=== PATIENT | male | born 1955 | race Caucasian/White ===

== ENCOUNTER → 2024-03-09 | Outpatient (CLI) | payer MEDICARE, BC, SELFPAY ==
[2024-03-09 13:33] LABS: Basophils # (Auto) 0.1 Thou/mm3 (0.0-0.2); Basophils % (Auto) 1 % (0-2.5); Eosinophils # (Auto) 0.2 Thou/mm3 (0.0-0.5); Eosinophils % (Auto) 3 % (0-10); Hematocrit 48.1 % (41.0-53.0); Hemoglobin 16.4 g/dL (13.5-16.0); Immature Granulocytes % (Auto) 1 % (0-0); Immature Granulocytes Auto 0.09 Thou/mm3 (0.00-0.00); Lymphocytes # (Auto) 1.5 Thou/mm3 (1.0-4.8); Lymphocytes % (Auto) 21 % (10-50); Mean Corpuscular HGB Conc 34.1 g/dl (31.0-37.0); Mean Corpuscular Hemoglobin 29.5 pg (25.0-35.0); Mean Corpuscular Volume 87 fL (80-100); Monocytes # (Auto) 0.7 Thou/mm3 (0.0-0.8); Monocytes % (Auto) 10 % (0-12); Neutrophils # (Auto) 4.4 Thou/mm3 (1.8-7.7); Neutrophils % (Auto) 64 % (37-80); Nucleated Red Blood Cell % 0 /100 WBC (0); Platelet Count 205 Thou/mm3 (140-440); Red Blood Count 5.55 Miln/mm3 (4.50-5.90); White Blood Count 6.9 Thou/mm3 (3.8-10.6)
[2024-03-09 13:40] LABS: Prostate Specific Antigen 0.65 ng/mL (0-4.00)
[2024-03-09 13:44] LABS: Vitamin D 25 Hydroxy Total 26.6 ng/mL (7.3-40.2)
[2024-03-09 13:45] LABS: Alanine Aminotransferase 21 U/L (10-49); Albumin, Serum 4.6 gm/dL (3.4-4.8); Alkaline Phosphatase 56 U/L (46-116); Anion Gap 4 (7-16); Aspartate Amino Transferase 17 U/L (0-34); BUN/Creatinine Ratio 13 Ratio (12-20); Bilirubin,Total 0.4 mg/dL (0.3-1.2); Blood Urea Nitrogen 14 mg/dL (9-23); Calcium 9.8 mg/dL (8.3-10.6); Calcium (Corrected) 9.8 mg/dL (8.5-10.1); Carbon Dioxide 27.7 mMol/L (20.0-31.0); Cardiac Risk Estimate 3.1 RATIO (4.0-6.7); Chloride 105 mMol/L (98-107); Cholesterol 129 mg/dL (132-200); Creatinine (Component) 1.1 mg/dL (0.6-1.3); Free T4 (Free Thyroxine) 0.91 ng/dL (0.89-1.76); Globulin 2.3 gm/dL (2.3-3.5); Glucose 93 mg/dL (74-106); HDL Cholesterol 41 mg/dL (40-60); LDL Cholesterol,Calculated 69 mg/dL (0-130); Osmolality,Calculated 274 (275-295); Sodium 137 mMol/L (136-145); Thyroid Stimulating Hormone 17.85 uIU/mL (0.55-4.78); Total Protein 6.9 gm/dL (5.7-8.2); Triglycerides 95 mg/dL (30-150); eGFR > 60 See Note
== END | disposition home or self-care (01) ==
PROVIDERS: PCP Internal Medicine Hospice and Palliative Medicine; Referring Provider Nurse Practitioner Family; Visit Provider Nurse Practitioner Family
DX: E78.5 Hyperlipidemia, unspecified (principal); E03.9 Hypothyroidism, unspecified; I10 Essential (primary) hypertension; E66.9 Obesity, unspecified; E55.9 Vitamin D deficiency, unspecified; N40.0 Benign prostatic hyperplasia without lower urinary tract symptoms; Z12.5 Encounter for screening for malignant neoplasm of prostate
CPT/HCPCS: 36415; 80053; 80061; 82306; 84153; 84439; 84443; 85025

== ENCOUNTER → 2024-05-04 | Outpatient (CLI) | payer MEDICARE, BC, SELFPAY ==
[2024-05-04 15:58] LABS: Free T4 (Free Thyroxine) 1.35 ng/dL (0.89-1.76); Thyroid Stimulating Hormone 1.12 uIU/mL (0.55-4.78)
== END | disposition home or self-care (01) ==
LOC: COPL 14:24
PROVIDERS: PCP Internal Medicine Hospice and Palliative Medicine; Referring Provider Nurse Practitioner Family; Visit Provider Nurse Practitioner Family
DX: E03.9 Hypothyroidism, unspecified (principal)
CPT/HCPCS: 36415; 84439; 84443

== ENCOUNTER 2024-05-08 15:18 | Outpatient (AMB) | payer MEDICARE, BC, SELFPAY ==
--- NOTE | 2024-05-08 15:31 | ORTHONT_ITS ---
Vital signs 05/08/24 15:32 Height 1.78 m Height Method Stated Weight 101.236 kg Weight Measurement Method Standing Scale BMI 31.9 BP 122/84 Blood Pressure Source Automatic Cuff Blood Pressure Location Left Upper Arm Position Sitting Respiration 18 Pulse 89 Pulse Source Monitor Temp 98.1 F Temp Source Temporal Artery Scan Pulse Oximetry (%) 95 Oxygen Delivery Method Room Air Med/Allergies Allergies & Medications Allergies No Known Allergies Allergy (Verified 05/08/24 15:35) Medication Reconciliation amlodipine 5 mg tablet 5 mg PO QDAY 12/25/22 [History Confirmed 05/08/24] atorvastatin 20 mg tablet 20 mg PO QDAY 12/25/22 [History Confirmed 05/08/24] benazepril 20 mg-hydrochlorothiazide 12.5 mg tablet 2 tab PO QDAY 12/25/22 [History Confirmed 05/08/24] cyclobenzaprine 5 mg tablet 5 mg PO HS 12/25/22 [History Confirmed 05/08/24] levothyroxine 137 mcg tablet 137 mcg PO QDAY 12/25/22 [History Confirmed 05/08/24] tamsulosin 0.4 mg capsule (Flomax) 0.4 mg PO QDAY 12/25/22 [History Confirmed 05/08/24] acetaminophen 325 mg tablet 650 mg (2 x 325 mg) PO QID #90 tabs 12/26/22 [Rx Confirmed 05/08/24] aspirin 81 mg tablet,delayed release 81 mg PO BID #60 tabs 12/26/22 [Rx Confirmed 05/08/24] doxycycline hyclate 100 mg tablet 100 mg PO BID #14 tabs 12/26/22 [Rx Confirmed 05/08/24] pregabalin 75 mg capsule 75 mg PO BID #45 caps 12/26/22 [Rx Confirmed 05/08/24] sennosides 8.6 mg-docusate sodium 50 mg tablet (Senna-S) 1 tab-cap PO QDAY #30 tabs 12/26/22 [Rx Confirmed 05/08/24] oxycodone 5 mg tablet 5 mg PO Q6H PRN pain #28 tabs 01/25/23 [Rx Confirmed 05/08/24] Exam Exam Patient is in no acute distress and is cooperative with the examination today. Patient has a normal mood and affect. Breathing is nonlabored. In no respiratory distress. Bilateral extremities were evaluated and demonstrates sensation intact to light touch. Palpable pedal pulses are present. No significant edema is present. Right knee incision is clean dry intact. The blisters have healed over completely. Range of motion is 10 degrees to 100 Right hip range of motion demonstrates 0 degrees of internal rotation and 5 degrees of external rotation. X-rays were reviewedAnd demonstrates a cementless left total knee replacement in good alignment position Assessment and Plan Problem List (1) Acute pain of right hip: Status: Acute Plan: Patient is a pleasant 68-year-old male with a prior total knee replacement. He reports a lot of pain actually in his groin and his thigh. He will get x-rays of his hip as this is likely cause given his exam. He has pain with logroll and pain with internal rotation. We will see him back once his x-ray results are done. Will order hip and knee x-rays. (2) History of total right knee replacement: Status: Acute Advanced Care Planning Discussion Advance care planning discussed with:: patient Office Procedures GNS Level of Care Nursing/Assessment Patient Status: Established Patient Nursing Assessment/Reassesment: Medication Reconciliation, Update PMH in EMR and Vital Signs Coordination of Care: Complex Care and Chronic Disease 1-5, Education Complex Pt/Fam, Consent,records obtained, informed consent, Results/Orders obtained and Staff clarify orders Established Patient Charge Established Patient Point Assignment: 95 Established Patient Point Charge: EP Level 3 (80-115) MA Intake Visit Data Collection New Patient or Established: Established Patient (seen at [facility] within 3 years) Reason for Visit:: FOLLOW UP Seen by Clinical Staff ONLY (RN/MA): 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 PCP or OBGYN visit in last 3 months: Yes Hx Now: No Do You Feel Safe at Home: Yes Authorities Contacted: N/A Questionairres Past Medical History Past Medical History Have you ever been diagnosed with any of the following: Neurological Problems Seizures: No Cardiology Problems Congestive Heart Failure: No Hypertension: Yes Respiratory Problems Chronic Obstructive Pulmonary Disease (COPD): No Sleep Apnea: Yes (c pap) Smoking: No Smoking Cessation Counseling: No Smoking Exposure: No Stomache/Intestinal Problems Obesity: Yes Genital/Urinary Problems Renal Disease: No Musculoskeletal Problems Arthritis: Yes Endocrine Problems Diabetes Mellitus Type 1: No Diabetes Mellitus Type 2: No Hypothyroidism: Yes Other Problems Hospitalization: Yes (surgery) Shingles: No Blood Transfusions: No Blood Transfusion Reaction: No Anesthesia Reactions: No MRSA: No Chicken Pox: Yes Cancer: Yes (Thyroid) Surgical History Thyroidectomy: Yes Subjective Visit Visit for: follow up visit Immunization / Flu Flu Vaccine in the Last 12 Months: No Flu Vaccine Exclusion Criteria: No Exclusion Criteria History of Present Illness Chief complaint: Right hip pain only Tao is a pleasant 68-year-old male who is a year and a half out from a rightKnee replacement. He reports he is a lot of pain in his thigh and his groin. I wonder if this could be from his hip. He continues to ride [employer]'s and motorcycles and is very active Treatments Improvement with previous injections: No Improvement with PT: No Improvement with NSAIDS: no Review of Systems Review of Systems: All systems negative unless otherwise noted in HPI.
[2024-05-08 15:32] VITALS: BP 122/84; PULSE 89; RESP 18; TEMP 36.7; O2SAT 95; BMI 31.9
--- NOTE | 2024-05-08 15:45 | XR_ITS ---
Examination: Right knee 4 views Technique: AP oblique lateral axial right knee 4 views Exam date and time: Every 22,025 1559 hrs. Indications: Status post right knee replacement December 2022 with persistent pain Findings: Mild osteopenia Total right knee arthroplasty. Satisfactory alignment No loosening of the prosthetic components No patellar dislocation No fracture Impression: Total right knee arthroplasty with satisfactory alignment
--- NOTE | 2024-05-08 15:45 | XR_ITS ---
Examination:Right hip AP, lateral, AP pelvis 3 views Technique: Hip AP lateral, AP pelvis, 3 views Exam date and time:April 30, 2024 1552 hrs. Indications: Right hip pain beginning December 2022 Findings: Advanced right hip osteoarthritis Moderate sclerosis involving the femoral head with radiolucencies Moderate narrowing left hip joint Prominent osteopenia Impression: Advanced right hip osteoarthritis Suspicious for avascular necrosis right femoral head, as clinically warranted, consider MRI right hip follow-up.
== END 2024-05-08 15:49 | disposition home or self-care (01) ==
LOC: HODSRG 15:18
PROVIDERS: PCP Internal Medicine Hospice and Palliative Medicine; Referring Provider Internal Medicine Hospice and Palliative Medicine; Supervising Provider Orthopaedic Surgery Adult Reconstructive Orthopaedic Surgery; Visit Provider Orthopaedic Surgery Adult Reconstructive Orthopaedic Surgery
DX: M25.551 Pain in right hip (principal); Z96.651 Presence of right artificial knee joint
CPT/HCPCS: 73502; 73564; 99213; G0463

== ENCOUNTER 2024-05-26 13:34 | Outpatient (AMB) | payer MEDICARE, BC, SELFPAY ==
[2024-05-26 13:50] VITALS: BP 145/90; PULSE 70; RESP 18; TEMP 36.8; O2SAT 94; BMI 32.8
--- NOTE | 2024-05-26 13:50 | ORTHONT_ITS ---
Vital signs 05/26/24 13:50 Height 1.78 m Height Method Stated Weight 103.986 kg Weight Measurement Method Standing Scale BMI 32.8 BP 145/90 H Blood Pressure Source Automatic Cuff Blood Pressure Location Right Upper Arm Position Sitting Respiration 18 Pulse 70 Pulse Source Monitor Temp 98.2 F Temp Source Temporal Artery Scan Pulse Oximetry (%) 94 L Oxygen Delivery Method Room Air Med/Allergies Allergies & Medications Allergies No Known Allergies Allergy (Verified 05/26/24 13:51) Medication Reconciliation amlodipine 5 mg tablet 5 mg PO QDAY 12/25/22 [History Confirmed 05/26/24] atorvastatin 20 mg tablet 20 mg PO QDAY 12/25/22 [History Confirmed 05/26/24] benazepril 20 mg-hydrochlorothiazide 12.5 mg tablet 2 tab PO QDAY 12/25/22 [History Confirmed 05/26/24] cyclobenzaprine 5 mg tablet 5 mg PO HS 12/25/22 [History Confirmed 05/26/24] levothyroxine 137 mcg tablet 137 mcg PO QDAY 12/25/22 [History Confirmed 05/26/24] tamsulosin 0.4 mg capsule (Flomax) 0.4 mg PO QDAY 12/25/22 [History Confirmed 05/26/24] acetaminophen 325 mg tablet 650 mg (2 x 325 mg) PO QID #90 tabs 12/26/22 [Rx Confirmed 05/26/24] aspirin 81 mg tablet,delayed release 81 mg PO BID #60 tabs 12/26/22 [Rx Confi rmed 05/26/24] doxycycline hyclate 100 mg tablet 100 mg PO BID #14 tabs 12/26/22 [Rx Confirmed 05/26/24] pregabalin 75 mg capsule 75 mg PO BID #45 caps 12/26/22 [Rx Confirmed 05/26/24] sennosides 8.6 mg-docusate sodium 50 mg tablet (Senna-S) 1 tab-cap PO QDAY #30 tabs 12/26/22 [Rx Confirmed 05/26/24] oxycodone 5 mg tablet 5 mg PO Q6H PRN pain #28 tabs 01/25/23 [Rx Confirmed 05/26/24] Exam Exam Patient is in no acute distress and is cooperative with the examination today. Patient has a normal mood and affect. Breathing is nonlabored. In no respiratory distress. Bilateral extremities were evaluated and demonstrates sensation intact to light touch. Palpable pedal pulses are present. No significant edema is present. Right knee incision is clean dry intact. The blisters have healed over completely. Range of motion is 10 degrees to 100 Right hip range of motion demonstrates 0 degrees of internal rotation and 5 degrees of external rotation. X-rays were reviewedAnd demonstrates a cementless left total knee replacement in good alignment position Right hip x-rays demonstrate severe arthritis with complete obliteration of the hip joint space Assessment and Plan Problem List (1) Acute pain of right hip: Status: Acute Plan: Patient is a pleasant 68-year-old male with a prior total knee replacement With right hip pain. He reports a lot of pain actually in his groin and his thigh. He has severe arthritis of his right hip and the pain is affecting his quality life and happiness. We discussed that a total hip replacement is a reasonable option. We discussed doing it between an anterior anterolateral approach and I think our goal laterally is quite a bit of a belly with hang up. The nature and purpose of the total hip replacement, alternative method(s) of treatment, the material risks involved, and the possibility of complications were fully explained to the patient. The patient does NOT have any of the following contraindications to KENISHA: - Active infection of the hip joint, OR - Active systemic bacteremia, OR - Active skin infection or open wound at surgical site, OR - Neuropathic arthritis, OR - Severe, rapidly progressive neurological disease, OR - Severe medical condition that makes risks of the surgery outweigh the potential benefit The patient was told the most common risks and complications associated with a total hip replacement include, but are not limited to: blood clots in the leg, fatal pulmonary embolism, dislocation of the prosthesis, intraoperative and postoperative fractures of the femur or acetabulum, infection, failure of the prosthesis or grafting materials, complications from anesthesia, reactions to blood transfusions, postoperative leg length inequality, instability of the hip replacement, nerve damage or injury, vascular injury, delayed wound healing, infection, other injury or even . In addition, there are risks associated with anesthesia given during this operation. Also, the patient was told that after undergoing a total hip replacement there may still be persistent pain or disability. The patient was informed that the success of this operation in part depends upon the mechanical devices which are going to be implanted and that these devices can fail or malfunction, and may need to be repaired or replaced and there are no guarantees as to the longevity of this device or its parts and that it or its parts could fail prematurely. The patient was also notified that during the course of surgery, there may be a need to use bone graft from donors, and that any bone graft used will be carefully screened for communicable diseases, including AIDS, hepatitis, Cesar-Creutzfeldt, or other diseases, but despite the screening procedures, there is a small chance that they could contract one of these diseases. Finally, the patient was asked to follow completely and fully with all advice and recommended treatments, and that recovery and ultimate outcome are affected by their compliance with recommended treatment. We discussed the risks, benefits and treatment alternatives, and the patient is interested in proceeding with surgery. We will try to set this up as expeditiously as possible. (2) History of total right knee replacement: Status: Acute Advanced Care Planning Discussion Advance care planning discussed with:: patient Office Procedures GNS Level of Care Nursing/Assessment Patient Status: Established Patient Nursing Assessment/Reassesment: Medication Reconciliation, Update PMH in EMR and Vital Signs Coordination of Care: Complex Care and Chronic Disease 1-5, Education Complex Pt/Fam, Consent,records obtained, informed consent, Results/Orders obtained and Staff clarify orders Established Patient Charge Established Patient Point Assignment: 95 Established Patient Point Charge: EP Level 3 (80-115) MA Intake Visit Data Collection New Patient or Established: Established Patient (seen at [facility] within 3 years) Reason for Visit:: XRAYS RESULTS Seen by Clinical Staff ONLY (RN/MA): No Verbal consent obtained for Telemed visit?: No 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 PCP or OBGYN visit in last 3 months: Yes Hx Now: No Do You Feel Safe at Home: Yes Authorities Contacted: N/A Questionairres Past Medical History Past Medical History Have you ever been diagnosed with any of the following: Neurological Problems Seizures: No Cardiology Problems Congestive Heart Failure: No Hypertension: Yes Respiratory Problems Chronic Obstructive Pulmonary Disease (COPD): No Sleep Apnea: Yes (c pap) Smoking: No Smoking Cessation Counseling: No Smoking Exposure: No Stomache/Intestinal Problems Obesity: Yes Genital/Urinary Problems Renal Disease: No Musculoskeletal Problems Arthritis: Yes Endocrine Problems Diabetes Mellitus Type 1: No Diabetes Mellitus Type 2: No Hypothyroidism: Yes Other Problems Hospitalization: Yes (surgery) Shingles: No Blood Transfusions: No Blood Transfusion Reaction: No Anesthesia Reactions: No MRSA: No Chicken Pox: Yes Cancer: Yes (Thyroid) Surgical History Thyroidectomy: Yes Subjective Visit Visit for: follow up visit and x-rays Immunization / Flu Flu Vaccine in the Last 12 Months: Yes Flu Vaccine Exclusion Criteria: Already Received History of Present Illness Chief complaint: F/U XRAYS Tao is a pleasant 68-year-old male who is a year and a half out from a right Knee replacement. He reports he is a lot of pain in his thigh and his groin. He is here for x-ray follow-up of his right hip as he felt a lot of groin pain. We obtained new x-rays and he has end-stage arthritis of his right hip. The pain is affecting his quality life and happiness. He has difficulty putting on shoes and has difficulty getting on his [employer]apha because of his hip pain Pain Pain level (0-10): 2 Pain duration: ALL DAY Pain location: outside (lateral) Pain quality: aching Pain timing: increases with activity Associated signs & symptoms: none Ambulatory data Ambulatory device: none Treatments Improvement with previous injections: No Improvement with PT: No Improvement with NSAIDS: no Review of Systems Review of Systems: All systems negative unless otherwise noted in HPI.
== END 2024-05-26 14:19 | disposition home or self-care (01) ==
LOC: HODSRG 13:34
PROVIDERS: PCP Internal Medicine Hospice and Palliative Medicine; Referring Provider Internal Medicine Hospice and Palliative Medicine; Supervising Provider Orthopaedic Surgery Adult Reconstructive Orthopaedic Surgery; Visit Provider Orthopaedic Surgery Adult Reconstructive Orthopaedic Surgery
DX: M16.11 Unilateral primary osteoarthritis, right hip (principal); Z96.651 Presence of right artificial knee joint; I10 Essential (primary) hypertension; G47.30 Sleep apnea, unspecified
CPT/HCPCS: 99213; G0463

== ENCOUNTER → 2024-06-18 | Outpatient (CLI) | payer MEDICARE, BC, SELFPAY ==
--- NOTE | 2024-06-18 14:06 | XR_ITS ---
Examination: CT bilateral lower extremities, without contrast. 2-D sagittal reconstructions. 2-D coronal reconstructions. 3-D reconstructions. Date and time of exam:June 18, 2024 1429 hrs. Indications: Diagnosis unilateral osteoarthritis right hip, right hip pain beginning 2020 CTDI: vol (mGy):11.6 DLP: (mGycm):827 Technique: Multiple 1.25 mm axial sections of the bilateral lower extremities without intravenous contrast have been obtained. 2-D sagittal and coronal reconstructions have been obtained. 3-D reconstructions have been obtained. Low dose protocols were performed. One or more of the following dose reduction techniques were used; automated exposure control, adjustment of the mA and/or KV according to patient size, use of iterative reconstruction technique. Findings: Severe osteopenia Advanced right hip osteoarthritis, [id number] joint space narrowing and subarticular cyst formation No fracture Moderate to advanced narrowing left hip joint Total right knee arthroplasty with satisfactory alignment Mild osteoarthritis medial lateral joint space left knee moderate narrowing lateral left patellofemoral joint Impression: Advanced right hip osteoarthritis
== END | disposition home or self-care (01) ==
LOC: CCTX 13:43
PROVIDERS: PCP Internal Medicine Hospice and Palliative Medicine; Referring Provider Orthopaedic Surgery Adult Reconstructive Orthopaedic Surgery; Visit Provider Orthopaedic Surgery Adult Reconstructive Orthopaedic Surgery
DX: M16.11 Unilateral primary osteoarthritis, right hip (principal)
CPT/HCPCS: 72192; 73700

== ENCOUNTER 2024-07-01 05:30 | Day surgery (SDC) | payer MEDICARE, BC, SELFPAY ==
[2024-06-29 09:41] VITALS: BMI 33.9
[2024-06-29 11:23] LABS: Basophils # (Auto) 0.1 Thou/mm3 (0.0-0.2); Basophils % (Auto) 1 % (0-2.5); Eosinophils # (Auto) 0.2 Thou/mm3 (0.0-0.5); Eosinophils % (Auto) 3 % (0-10); Hematocrit 47.8 % (41.0-53.0); Hemoglobin 16.7 g/dL (13.5-16.0); Immature Granulocytes % (Auto) 1 % (0-0); Immature Granulocytes Auto 0.06 Thou/mm3 (0.00-0.00); Lymphocytes # (Auto) 1.4 Thou/mm3 (1.0-4.8); Lymphocytes % (Auto) 20 % (10-50); Mean Corpuscular HGB Conc 34.9 g/dl (31.0-37.0); Mean Corpuscular Hemoglobin 29.6 pg (25.0-35.0); Mean Corpuscular Volume 85 fL (80-100); Monocytes # (Auto) 0.8 Thou/mm3 (0.0-0.8); Monocytes % (Auto) 11 % (0-12); Neutrophils # (Auto) 4.5 Thou/mm3 (1.8-7.7); Neutrophils % (Auto) 65 % (37-80); Nucleated Red Blood Cell % 0 /100 WBC (0); Platelet Count 204 Thou/mm3 (140-440); RDW Standard Deviation 39.8 fL (35.1-43.9); Red Blood Count 5.65 Miln/mm3 (4.50-5.90)
[2024-06-29 12:03] LABS: Partial Thromboplastin Time 25.4 Seconds (22.0-36.0)
[2024-06-29 12:15] LABS: Alanine Aminotransferase 25 U/L (10-49); Albumin, Serum 4.6 gm/dL (3.4-4.8); Albumin/Globulin Ratio 1.8 (1.2-2.2); Alkaline Phosphatase 67 U/L (46-116); Anion Gap 5 (7-16); Aspartate Amino Transferase 20 U/L (0-34); BUN/Creatinine Ratio 11 Ratio (12-20); Bilirubin,Total 0.6 mg/dL (0.3-1.2); Blood Urea Nitrogen 14 mg/dL (9-23); Carbon Dioxide 27.3 mMol/L (20.0-31.0); Chloride 103 mMol/L (98-107); Creatinine (Component) 1.3 mg/dL (0.6-1.3); Estimated Creatinine Clearance 61.8 mL/min (>60); Globulin 2.6 gm/dL (2.3-3.5); Glucose 92 mg/dL (74-106); Osmolality,Calculated 270 (275-295); Potassium 3.9 mMol/L (3.4-5.1); Sodium 135 mMol/L (136-145); Total Protein 7.2 gm/dL (5.7-8.2); eGFR 59 See Note
[2024-06-29 12:27] LABS: Prothrombin Time 10.9 Seconds (9.0-12.2)
--- NOTE | 2024-06-30 08:23 | SUR.PREOP ---
Cardiac history and records reviewed with Dr Herrera.
[2024-07-01] VITALS (18 sets, daily range): BP systolic 88–134; BP diastolic 59–91; PULSE 67–82; RESP 15–22; TEMP 36.3–36.7; O2SAT 95–100; BMI 33.3
[2024-07-01] MEDS: ACETAMINOPHEN 325 MG TABLET 650 MG PO (06:53)
[2024-07-01] MEDS: MELOXICAM 7.5 MG TABLET PO (06:54)
[2024-07-01] MEDS: PREGABALIN 75 MG CAPSULE PO (06:54)
[2024-07-01] MEDS: RINGERS LACTATED 1000 ML 1,000 ML 20 ML IV (06:55)
--- NOTE | 2024-07-01 07:28 | CHAP ---
Visited briefly with patient giving encouragement and prayer.
--- NOTE | 2024-07-01 07:53 | XR_ITS ---
Examination: AP right hip single view Technique one AP portable right hip single view Exam date and time: July 01, 2024 0953 hours INDICATIONS: Status post total right hip arthroplasty FINDINGS: Total right hip arthroplasty. Satisfactory alignment No fracture IMPRESSION: Total right hip arthroplasty with satisfactory alignment
--- NOTE | 2024-07-01 09:57 | SUR.OPER ---
IMPLANT: DANIEL INSIGNIA HIP STEM HIGH OFFSET REF: [id number] LOT: [id number] MARIN 7 NK LNTH 41 MM STM LNTH 109 MM OFFST HIGH EXP 05/20/28
--- NOTE | 2024-07-01 10:28 | PD.SUROPNT ---
Date of Procedure 07/01/24 Pre Op Diagnosis right hip osteoarthritis Post Op Diagnosis right hip osteoarthritis Procedure right total hip replacement Findings full thickness cartilage loss and osteophytes Procedure Description Indications: The patient is a 68 y.o. year-old with a longstanding history of right hip pain. After considering the patient's condition and the impact of their hip injury on the patient's quality of life and risks of nonoperative treatment, total hip replacement was offered as a reasonable option. Prior to the surgery I discussed the nature of the hip replacement surgery including alternatives to surgery and the purpose of, and indications for proceeding with surgery. I discussed that this surgery is a shared decision between the patient and the surgeon. Risks and benefits and alternatives of the procedure have been explained to the patient and their family. Anesthesia complications and risks include but are not limited to stroke, heart attack, and . The surgical risks include but are not limited to infection, instability/dislocation, bleeding, nerve and blood vessel injury, deep vein thrombosis, pulmonary embolus, stiffness, pain, scar, need for reoperation, leg length discrepancy, thigh numbness, weakness, and mechanical failure of the implant including loosening, metal complications, metal allergy, wear or breakage. I discussed the expected recovery from surgery and the importance of compliance with all our pre and post-operative recommendations in order to maximize the recovery. The patient/family understands the risks of loss of life, loss of limb and, loss of function and wishes to proceed. They understand they are at increased risk for infection given their history of smoking. A signed and witnessed consent was obtained and placed in the chart. Patient Positioning: The patient was placed in the lateral decubitus position on a standard table using a pegboard. An axillary role was placed. All extremities were padded to ensure adequate protection. A aquino catheter was aseptically inserted. Time Out: A timeout was performed prior to the procedure which verified the correct patient, positioning, operation to be performed, operative site, antibiotics, allergies, imaging, and any other concerns. All parties were in agreement. Procedure in detail: The operative site was cleaned and draped in the usual sterile fashion. A final timeout was performed with all parties in agreement. We first placed pins for the array above the ASIS. A modified anterolateral approach to the hip was utilized. A 16cm skin incision was made centered over the greater trochanter in line with the femur. This was taken down through skin and subcutaneous tissue using a 10 blade. Bleeding was controlled using electrocautery. The fascia was identified and split in line with the femur. The charnley retractor was then placed. The abductor insertion was identified and a split made in the anterior 1/3 of the tendon proximally. Retractors were placed and the gluteus minimus was visualized. A capsulotomy was made down to the femoral neck anterior to the minimus. A split was then made in the anterior 1/3 of the vastus lateralis. A retractor was then placed anterior to the femoral shaft, the tendon was tagged with #1 ethibond sutures and a U-shaped split was made in the anterior 1/3 of the abductor tendon being careful to leave enough tendon to re-attach. The hip was then gently externally rotated as the anterior tissues were taken down with the tendon and capsule as one sleeve. Once the anterior tissue had been release off of bone a bone hook was placed and the hip was gently dislocated. Retractors were placed around the femoral neck and the femoral neck osteotomy was then made to freshen up the cut. The femoral head removed. The leg was then placed in extension and retractors were placed anterior and posterior to the acetabulum. The inferior capsule was release to improved visualization and the labrum and osteophytes around the acetabulum were removed. The acetabulum was then reamed to bleeding bone with adequate wall coverage and the cup was impacted into place using the robot. 1 Screw was then placed followed by the liner which was impacted and confirmed to be seated. We then turned our attention to the femur. The leg was brought into external rotation and the femur was exposed. A canal finder was used followed by a box osteotomy and the femur was broached sequentially. The trial stem was then left in and the hip was trialed using various neck offsets and head sizes until the appropriate size was found based on leg length, stability. Once we were satisfied with the construct a cross-table AP pelvis radiograph was obtained to confirm appropriate positioning and sizing. The hip was then dislocated and the trials were then removed and the final stem impacted into placed. The hip was then again trialed and the appropriate head size identified. The hilario taper was then cleaned and dried and the final head impact into place and tested. The acetabulum was irrigated and confirmed to be free of debris. The hip was then reduced and taken through range of motion. The hip was stable in abduction and external rotation, adduction and external rotation, flexion past 90 degrees and internal rotation past 20 degrees. It did not sublux throughout range of motion and no impingement was detected. Leg lengths were appropriately restored based on preoperative leg lengths and intraoperative testing. . The hip was then copiously irrigated with dilute betadine followed by normal saline. The hip was then injected with the cocktail per protocol The hip was the closed in layers. The abductor tendon was closed with #1 ethibond. The fascia was closed with 0 Vicryl followed by an 0 V-lock. . The deep layer was closed with 0-Vicryl and the subcutaneous layer by a 2-0 Vicryl. The subdermal layer was closed with a 3-0 monocryl. The skin was then cleaned and dried and steri-strips placed followed by a sterile dressing. The drapes were then taken down and the patient was placed supine. Leg lengths were confirmed to be appropriate and the patient's lower extremities were warm and well perfused with brisk capillary refill and palpable pulses. The patient was then awoken, transferred to the [facility] and taken to the PACU in stable condition. They tolerated the procedure well. The patient's family/caregiviers were made aware of their condition. Postoperative plan Activity: WBAT, no hip precautions , no active hip abduction DVT Prophylaxis: aspirin 81mg BID Antibiotics: Standard postoperative antibiotics x 24 hours Implants: Leah 52 cup, 7 HO insiginia, 1 screw, standard liner, 40 head Anesthesia GETA Drains none Implants leah Pathology / specimen None Pathology comment: none Estimated Blood Loss 150 Condition Stable Disposition same day Surgeon Armand Larson MD Surgical Staff Operation Date: 07/01/24 08:00 Case Staff Anesthesiologist: Ha Pichardo RN First Assistant: Candida Wolfe
--- NOTE | 2024-07-01 10:31 | XR_ITS ---
Examination:Right hip AP, lateral, AP pelvis 3 views Technique: Hip AP lateral, AP pelvis, 3 views Exam date and time:July 01, 2024 1122 hours INDICATIONS: Postoperative replacement FINDINGS: Total right hip arthroplasty. Satisfactory alignment No fracture Moderate to advanced narrowing left hip joint IMPRESSION: Total right hip arthroplasty with satisfactory alignment.
--- NOTE | 2024-07-01 10:42 | SUR.PHASEI ---
1042 Patient arrived to recovery resting comfortably in [facility], on oxygen 10L via oxy mask with an oral airway in place, breathing unlabored, blood pressure low- patient obtunded, anesthesia provider aware, no new orders will monitor patient, the remainder of patients vital signs are within normal range, dressing intact to right hip; sutures, prineo, abd, medipore tape, no bleeding noted, report received from David AGUIRRE and Dr. Pichardo
--- NOTE | 2024-07-01 10:58 | SUR.PHASEI ---
1050 post spinal anesthesia assessment via ice, patient has dermatome sensation at S2 perineum
--- NOTE | 2024-07-01 11:41 | SUR.PHASEII ---
Received report on pt. s/p surgery from Kasey Montemayor RN. Pt. is resting, VSS, tolerating sips of water. Dressing to right hip CDI, cap refill <3 seconds to hu. feet, pedal pulses present and palpable, no c/o pain or nausea at this time.
--- NOTE | 2024-07-01 11:41 | SUR.PHASEI ---
1141 Report given to Selina AGUIRRE
--- NOTE | 2024-07-01 12:35 | SUR.PHASEII ---
patient sitting up in bed eating lunch, tolerating well
--- NOTE | 2024-07-01 13:21 | SUR.PHASEII ---
5688 verbal order read-back from Dr. Larson- Tamsulosin 0.4mg oral tab to help patient void, this is patient normal medication and he did not take it this morning per patient, will place order in EMR and administer per MD order
--- NOTE | 2024-07-01 13:26 | SUR.PHASEII ---
patient cleared by physical therapy to proceed with discharge, however patient unable to void in restroom
[2024-07-01] MEDS: TAMSULOSIN HCL 0.4 MG CAPSULE PO (13:40)
[2024-07-01] MEDS: ACETAMINOPHEN IVPB 1,000 MG/100 ML VIAL 250 MG IV (15:17)
--- NOTE | 2024-07-01 15:46 | SUR.PHASEII ---
1546 Patient meets discharge criteria from recovery, awake and alert, breathing unlabored, vital signs stable, denies pain, dressing intact; no bleeding noted, denies nausea, patient voided 400ml in urinal prior to discharge, patient assisted with dressing into his clothing by this insurance writer, discharge instructions given to patient and patients daughter, daughter signed discharge instructions. Patient given all his belongings prior to discharge, transported via wheelchair and left in a private vehicle.
== END 2024-07-01 15:46 | disposition home or self-care (01) ==
PROVIDERS: Anesthesiology; Referring Provider Orthopaedic Surgery Adult Reconstructive Orthopaedic Surgery; Visit Provider Orthopaedic Surgery Adult Reconstructive Orthopaedic Surgery
PROC: (CPT 27130; principal; 2024-07-01 08:00)
DX: M16.11 Unilateral primary osteoarthritis, right hip (principal); M25.751 Osteophyte, right hip; Z87.891 Personal history of nicotine dependence
CPT/HCPCS: 27130; C1776; 36415; 73501; 73502; 80053; 85025; 85610; 85730; 97162; A4217; A4649; C1713; J0131; J0690; J1100; J1885; J2250; J2405; J2704; J3010; J3490; J7030; J7120; J7999; A9270

== ENCOUNTER 2024-07-21 14:54 | Outpatient (AMB) | payer MEDICARE, BC, SELFPAY ==
[2024-07-21 15:22] VITALS: BP 119/76; PULSE 73; RESP 17; TEMP 36.7; O2SAT 93; BMI 32.1
--- NOTE | 2024-07-21 15:22 | ORTHONT_ITS ---
Vital signs 07/21/24 15:22 Height 1.78 m Height Method Stated Weight 101.406 kg Weight Measurement Method Standing Scale BMI 32.1 BP 119/76 Blood Pressure Source Automatic Cuff Blood Pressure Location Right Upper Arm Position Sitting Respiration 17 Pulse 73 Pulse Source Monitor Temp 98.1 F Temp Source Temporal Artery Scan Pulse Oximetry (%) 93 L Oxygen Delivery Method Room Air Med/Allergies Allergies & Medications Allergies No Known Allergies Allergy (Verified 07/21/24 15:23) Medication Reconciliation amlodipine 5 mg tablet 5 mg PO QDAY 12/25/22 [History Confirmed 07/21/24] atorvastatin 20 mg tablet 20 mg PO QDAY 12/25/22 [History Confirmed 07/21/24] benazepril 20 mg-hydrochlorothiazide 12.5 mg tablet 2 tab PO QDAY 12/25/22 [History Confirmed 07/21/24] levothyroxine 137 mcg tablet 137 mcg PO QDAY 12/25/22 [History Confirmed 07/21/24] tamsulosin 0.4 mg capsule (Flomax) 0.4 mg PO QDAY 12/25/22 [History Confirmed 07/21/24] acetaminophen 500 mg tablet (Acetaminophen Extra Strength) 1,000 mg (2 x 500 mg) PO Q6H PRN pain #90 tabs 07/01/24 [Rx Confirmed 07/21/24] aspirin 81 mg tablet,delayed release 81 mg PO BID #60 tabs 07/01/24 [Rx Confirmed 07/21/24] doxycycline hyclate 100 mg tablet 100 mg PO BID #14 tabs 07/01/24 [Rx Confirmed 07/21/24] gabapentin 300 mg capsule 300 mg PO .qhs #30 caps 07/01/24 [Rx Confirmed 07/21/24] oxycodone 5 mg tablet 5 mg PO Q6H PRN pain #28 tabs 07/01/24 [Rx Confirmed 07/21/24] sennosides 8.6 mg-docusate sodium 50 mg tablet (Senna-S) 1 tab-cap PO QDAY #30 tabs 07/01/24 [Rx Confirmed 07/21/24] oxycodone 5 mg tablet 5 mg PO Q6H PRN pain #28 tabs 07/06/24 [Rx Confirmed 07/21/24] Exam Exam Patient is in no acute distress and is cooperative with the examination today. Patient has a normal mood and affect. Breathing is nonlabored. In no respiratory distress. Bilateral extremities were evaluated and demonstrates sensation intact to light touch. Palpable pedal pulses are present. No significant edema is present. Right knee incision is clean dry intact. The blisters have healed over completely. Range of motion is 10 degrees to 100 Right hip range of motionIs preserved. Leg lengths are equal X-rays were reviewed And demonstrates a cementless left total knee replacement in good alignment position Assessment and Plan Problem List (1) Acute pain of right hip: Status: Acute Plan: Patient is a pleasant 68-year-old male with a prior total knee replacement And a recent right total hip replacement. He is doing well. We will see him back in 4 weeks with new x-rays. He is doing well. He should finish his DVT prophylaxis (2) History of total right knee replacement: Status: Acute Advanced Care Planning Discussion Advance care planning discussed with:: patient Office Procedures GNS Level of Care Nursing/Assessment Patient Status: Established Patient Nursing Assessment/Reassesment: Medication Reconciliation, Update PMH in EMR and Vital Signs Coordination of Care: Complex Care and Chronic Disease 1-5, Consent,records obtained, informed consent, Education Simp Pt/Fam, Results/Orders obtained and Staff clarify orders Established Patient Charge Established Patient Point Assignment: 90 Established Patient Point Charge: EP Level 3 (80-115) MA Intake Visit Data Collection New Patient or Established: Established Patient (seen at [facility] within 3 years) Reason for Visit:: 2 WK POST OP RT KENISHA Seen by Clinical Staff ONLY (RN/MA): No Home Fire Alarm Installer Required: No PCP or OBGYN visit in last 3 months: Yes Hx Now: No Do You Feel Safe at Home: Yes Authorities Contacted: N/A Questionairres Past Medical History Past Medical History Have you ever been diagnosed with any of the following: Neurological Problems Seizures: No Cardiology Problems Hypercholesterolemia: Yes Congestive Heart Failure: No Hypertension: Yes Respiratory Problems Chronic Obstructive Pulmonary Disease (COPD): No Pneumonia: Yes (at 7 yrs old) Sleep Apnea: Yes (c pap) Smoking: No Smoking Cessation Counseling: No Smoking Exposure: No Stomache/Intestinal Problems Obesity: Yes Genital/Urinary Problems Renal Disease: No Benign Prostatic Hyperplasia: Yes Musculoskeletal Problems Arthritis: Yes Endocrine Problems Diabetes Mellitus Type 1: No Diabetes Mellitus Type 2: No Hypothyroidism: Yes Other Problems Hospitalization: Yes (surgery) Shingles: No Blood Transfusions: No Blood Transfusion Reaction: No Anesthesia Reactions: Yes MRSA: No Chicken Pox: Yes Cancer: Yes (Thyroid) Surgical History Thyroidectomy: Yes Subjective Visit Visit for: follow up visit and post op #1 (2 WK POST OP RT KEINSHA) Immunization / Flu Flu Vaccine in the Last 12 Months: Yes Flu Vaccine Exclusion Criteria: Already Received History of Present Illness Chief complaint: F/U XRAYS Tao is a pleasant 68-year-old male who is a year and a half out from a right Knee replacement. He is also 3 weeks out from a hip replacement and is doing very well. He has minimal pain on the right side Pain Pain level (0-10): 3 Pain duration: 3 WEEKS Pain location: groin Pain quality: dull and tingling Pain timing: night Associated signs & symptoms: numbness and stiffness Ambulatory data Ambulatory device: cane Walking distance (minutes): 5 Treatments Number of previous injections: 0 Improvement with previous injections: No Number of Physical Therapy sessions: 0 Improvement with PT: No Improvement with NSAIDS: n/a Review of Systems Review of Systems: All systems negative unless otherwise noted in HPI.
== END 2024-07-21 15:26 | disposition home or self-care (01) ==
LOC: HODSRG 14:54
PROVIDERS: PCP Internal Medicine Hospice and Palliative Medicine; Referring Provider Internal Medicine Hospice and Palliative Medicine; Supervising Provider Orthopaedic Surgery Adult Reconstructive Orthopaedic Surgery; Visit Provider Orthopaedic Surgery Adult Reconstructive Orthopaedic Surgery
DX: M25.551 Pain in right hip (principal); Z96.641 Presence of right artificial hip joint; Z96.651 Presence of right artificial knee joint; E78.00 Pure hypercholesterolemia, unspecified; I10 Essential (primary) hypertension; G47.30 Sleep apnea, unspecified
CPT/HCPCS: 99213; G0463

== ENCOUNTER 2024-08-18 14:27 | Outpatient (AMB) | payer MEDICARE, BC, SELFPAY ==
[2024-08-18 14:40] VITALS: BP 143/90; PULSE 82; RESP 19; TEMP 36.7; O2SAT 97; BMI 31.9
--- NOTE | 2024-08-18 14:40 | ORTHONT_ITS ---
Vital signs 08/18/24 14:40 Height 1.78 m Height Method Stated Weight 101.151 kg Weight Measurement Method Standing Scale BMI 31.9 BP 143/90 H Blood Pressure Source Automatic Cuff Blood Pressure Location Left Upper Arm Position Sitting Respiration 19 Pulse 82 Pulse Source Monitor Temp 98.0 F Temp Source Temporal Artery Scan Pulse Oximetry (%) 97 Oxygen Delivery Method Room Air Med/Allergies Allergies & Medications Allergies No Known Allergies Allergy (Verified 08/18/24 14:41) Medication Reconciliation amlodipine 5 mg tablet 5 mg PO QDAY 12/25/22 [History Confirmed 08/18/24] atorvastatin 20 mg tablet 20 mg PO QDAY 12/25/22 [History Confirmed 08/18/24] benazepril 20 mg-hydrochlorothiazide 12.5 mg tablet 2 tab PO QDAY 12/25/22 [History Confirmed 08/18/24] levothyroxine 137 mcg tablet 137 mcg PO QDAY 12/25/22 [History Confirmed 08/18/24] tamsulosin 0.4 mg capsule (Flomax) 0.4 mg PO QDAY 12/25/22 [History Confirmed 08/18/24] acetaminophen 500 mg tablet (Acetaminophen Extra Strength) 1,000 mg (2 x 500 mg) PO Q6H PRN pain #90 tabs 07/01/24 [Rx Confirmed 08/18/24] aspirin 81 mg tablet,delayed release 81 mg PO BID #60 tabs 07/01/24 [Rx Confirmed 08/18/24] doxycycline hyclate 100 mg tablet 100 mg PO BID #14 tabs 07/01/24 [Rx Confirmed 08/18/24] gabapentin 300 mg capsule 300 mg PO .qhs #30 caps 07/01/24 [Rx Confirmed 08/18/24] oxycodone 5 mg tablet 5 mg PO Q6H PRN pain #28 tabs 07/01/24 [Rx Confirmed 08/18/24] sennosides 8.6 mg-docusate sodium 50 mg tablet (Senna-S) 1 tab-cap PO QDAY #30 tabs 07/01/24 [Rx Confirmed 08/18/24] oxycodone 5 mg tablet 5 mg PO Q6H PRN pain #28 tabs 07/06/24 [Rx Confirmed 08/18/24] Exam Exam Patient is in no acute distress and is cooperative with the examination today. Patient has a normal mood and affect. Breathing is nonlabored. In no respiratory distress. Bilateral extremities were evaluated and demonstrates sensation intact to light touch. Palpable pedal pulses are present. No significant edema is present. Right knee incision is clean dry intact. The blisters have healed over completely. Range of motion is 10 degrees to 100 Right hip range of motionIs preserved. Leg lengths are equal X-rays were reviewed And demonstrates a cementless left total knee replacement in good alignment position. Assessment and Plan Problem List (1) Acute pain of right hip: Status: Acute Plan: Patient is a pleasant 68-year-old male with a prior total knee replacement And a recent right total hip replacement. He is doing well. We will see him back in64 weeks with new x-rays. (2) History of total right knee replacement: Status: Acute Advanced Care Planning Discussion Advance care planning discussed with:: patient Office Procedures GNS Level of Care Nursing/Assessment Patient Status: Established Patient Nursing Assessment/Reassesment: Medication Reconciliation, Update PMH in EMR and Vital Signs Coordination of Care: Complex Care and Chronic Disease 1-5, Education Complex Pt/Fam, Consent,records obtained, informed consent, Results/Orders obtained and Staff clarify orders Established Patient Charge Established Patient Point Assignment: 95 Established Patient Point Charge: EP Level 3 (80-115) MA Intake Visit Data Collection New Patient or Established: Established Patient (seen at [facility] within 3 years) Reason for Visit:: POST OP FOLLOW UP Seen by Clinical Staff ONLY (RN/MA): No PCP or OBGYN visit in last 3 months: Yes Hx Now: No Do You Feel Safe at Home: Yes Authorities Contacted: N/A Questionairres Past Medical History Past Medical History Have you ever been diagnosed with any of the following: Neurological Problems Seizures: No Cardiology Problems Hypercholesterolemia: Yes Congestive Heart Failure: No Hypertension: Yes Respiratory Problems Chronic Obstructive Pulmonary Disease (COPD): No Pneumonia: Yes (at 7 yrs old) Sleep Apnea: Yes (c pap) Smoking: No Smoking Cessation Counseling: No Smoking Exposure: No Stomache/Intestinal Problems Obesity: Yes Genital/Urinary Problems Renal Disease: No Benign Prostatic Hyperplasia: Yes Musculoskeletal Problems Arthritis: Yes Endocrine Problems Diabetes Mellitus Type 1: No Diabetes Mellitus Type 2: No Hypothyroidism: Yes Other Problems Hospitalization: Yes (surgery) Shingles: No Blood Transfusions: No Blood Transfusion Reaction: No Anesthesia Reactions: Yes MRSA: No Chicken Pox: Yes Cancer: Yes (Thyroid) Surgical History Thyroidectomy: Yes Subjective Visit Visit for: follow up visit Immunization / Flu Flu Vaccine in the Last 12 Months: No Flu Vaccine Exclusion Criteria: No Exclusion Criteria History of Present Illness Chief complaint: F/U XRAYS Tao is a pleasant 68-year-old male who is a year and a half out from a right Knee replacement. He is 6 weeks out from a hip replacement and is doing very well. He has minimal pain on the right side Pain Pain level (0-10): 3 Pain duration: 3 WEEKS Pain location: groin Pain quality: dull and tingling Pain timing: night Associated signs & symptoms: numbness and stiffness Ambulatory data Ambulatory device: none Walking distance (minutes): 5 Treatments Number of previous injections: 0 Improvement with previous injections: No Number of Physical Therapy sessions: 0 Improvement with PT: No Improvement with NSAIDS: no Review of Systems Review of Systems: All systems negative unless otherwise noted in HPI.
--- NOTE | 2024-08-18 14:48 | XR_ITS ---
Examination:Right hip AP, lateral, AP pelvis 3 views Technique: Hip AP lateral, AP pelvis, 3 views Exam date and time:August 18, 2024 1451 hours INDICATIONS: Right hip replacement July 01, 2024, history falls FINDINGS: Total right hip arthroplasty. Satisfactory alignment No loosening of the prosthetic components Moderate to advanced left hip osteoarthritis No pelvic fracture IMPRESSION: Total right hip arthroplasty with satisfactory alignment Moderate to advanced left hip osteoarthritis.
== END 2024-08-18 14:50 | disposition home or self-care (01) ==
LOC: HODSRG 14:27
PROVIDERS: PCP Internal Medicine Hospice and Palliative Medicine; Referring Provider Internal Medicine Hospice and Palliative Medicine; Supervising Provider Orthopaedic Surgery Adult Reconstructive Orthopaedic Surgery; Visit Provider Orthopaedic Surgery Adult Reconstructive Orthopaedic Surgery
DX: M25.561 Pain in right knee (principal); Z96.651 Presence of right artificial knee joint; M16.12 Unilateral primary osteoarthritis, left hip; I10 Essential (primary) hypertension; E78.00 Pure hypercholesterolemia, unspecified; E03.9 Hypothyroidism, unspecified
CPT/HCPCS: 73502; 99213; G0463

== ENCOUNTER 2024-11-17 14:16 | Outpatient (AMB) | payer MEDICARE, BC, SELFPAY ==
--- NOTE | 2024-11-17 14:58 | ORTHONT_ITS ---
Vital signs 11/17/24 14:59 Height 1.78 m Height Method Measured Weight 103.079 kg Weight Measurement Method Standing Scale BMI 32.5 BP 128/81 Blood Pressure Source Automatic Cuff Blood Pressure Location Left Upper Arm Position Sitting Respiration 18 Pulse 73 Pulse Source Monitor Temp 98.4 F Temp Source Temporal Artery Scan Pulse Oximetry (%) 93 L Oxygen Delivery Method Room Air Med/Allergies Allergies & Medications Allergies No Known Allergies Allergy (Verified 11/17/24 15:00) Medication Reconciliation amlodipine 5 mg tablet 5 mg PO QDAY 12/25/22 [History Confirmed 11/17/24] atorvastatin 20 mg tablet 20 mg PO QDAY 12/25/22 [History Confirmed 11/17/24] benazepril 20 mg-hydrochlorothiazide 12.5 mg tablet 2 tab PO QDAY 12/25/22 [History Confirmed 11/17/24] levothyroxine 137 mcg tablet 137 mcg PO QDAY 12/25/22 [History Confirmed 11/17/24] tamsulosin 0.4 mg capsule (Flomax) 0.4 mg PO QDAY 12/25/22 [History Confirmed 11/17/24] acetaminophen 500 mg tablet (Acetaminophen Extra Strength) 1,000 mg (2 x 500 mg) PO Q6H PRN pain #90 tabs 07/01/24 [Rx Confirmed 11/17/24] aspirin 81 mg tablet,delayed release 81 mg PO BID #60 tabs 07/01/24 [Rx Confirmed 11/17/24] doxycycline hyclate 100 mg tablet 100 mg PO BID #14 tabs 07/01/24 [Rx Confirmed 11/17/24] gabapentin 300 mg capsule 300 mg PO .qhs #30 caps 07/01/24 [Rx Confirmed 11/17/24] oxycodone 5 mg tablet 5 mg PO Q6H PRN pain #28 tabs 07/01/24 [Rx Confirmed 11/17/24] sennosides 8.6 mg-docusate sodium 50 mg tablet (Senna-S) 1 tab-cap PO QDAY #30 tabs 07/01/24 [Rx Confirmed 11/17/24] oxycodone 5 mg tablet 5 mg PO Q6H PRN pain #28 tabs 07/06/24 [Rx Confirmed 11/17/24] Exam Exam Patient is in no acute distress and is cooperative with the examination today. Patient has a normal mood and affect. Breathing is nonlabored. In no respiratory distress. Bilateral extremities were evaluated and demonstrates sensation intact to light touch. Palpable pedal pulses are present. No significant edema is present. Right knee incision is clean dry intact. The blisters have healed over completely. Range of motion is 10 degrees to 100 Right hip range of motionIs preserved. Leg lengths are equal X-rays were reviewed And demonstrates a cementless left total knee replacement in good alignment position. Right total hip replacement is cementless and is in good alignment position Assessment and Plan Problem List (1) Acute pain of right hip: Status: Acute Plan: Patient is a pleasant 68-year-old male with a prior total knee replacement And a recent right total hip replacement. He is doing well. we will see him back in 6 months for routine follow-up (2) History of total right knee replacement: Status: Acute Advanced Care Planning Discussion Advance care planning discussed with:: patient Office Procedures GNS Level of Care Nursing/Assessment Patient Status: Established Patient Nursing Assessment/Reassesment: Medication Reconciliation, Orthostatic Vitals, Update PMH in EMR and Vital Signs Coordination of Care: Complex Care and Chronic Disease 1-5, Education Complex Pt/Fam, Consent,records obtained, informed consent, Lab and Imaging orders, Res ults/Orders obtained and Staff clarify orders Established Patient Charge Established Patient Point Assignment: 120 Established Patient Point Charge: EP Level 4 (120-155) MA Intake Visit Data Collection New Patient or Established: Established Patient (seen at [facility] within 3 years) Reason for Visit:: POST OP FOLLOW UP Seen by Clinical Staff ONLY (RN/MA): No Business Information Analyst Required: No PCP or OBGYN visit in last 3 months: Yes Hx Now: No Do You Feel Safe at Home: Yes Authorities Contacted: N/A Questionairres Past Medical History Past Medical History Have you ever been diagnosed with any of the following: Neurological Problems Seizures: No Cardiology Problems Hypercholesterolemia: Yes Congestive Heart Failure: No Hypertension: Yes Respiratory Problems Chronic Obstructive Pulmonary Disease (COPD): No Pneumonia: Yes (at 7 yrs old) Sleep Apnea: Yes (c pap) Smoking: No Smoking Cessation Counseling: No Smoking Exposure: No Stomache/Intestinal Problems Obesity: Yes Genital/Urinary Problems Renal Disease: No Benign Prostatic Hyperplasia: Yes Musculoskeletal Problems Arthritis: Yes Endocrine Problems Diabetes Mellitus Type 1: No Diabetes Mellitus Type 2: No Hypothyroidism: Yes Other Problems Hospitalization: Yes (surgery) Shingles: No Blood Transfusions: No Blood Transfusion Reaction: No Anesthesia Reactions: Yes MRSA: No Chicken Pox: Yes Cancer: Yes (Thyroid) Surgical History Thyroidectomy: Yes Subjective Visit Visit for: follow up visit and hip Immunization / Flu Flu Vaccine in the Last 12 Months: No Flu Vaccine Exclusion Criteria: No Exclusion Criteria History of Present Illness Chief complaint: 3 MONTH F/U XRAY RESULTS OF THE HIP Tao is a pleasant 68-year-old male who is a year and a half out from a right Knee replacement. He is 4 months out from a hip replacement and is doing very well. He has minimal pain on the right side Personal History Red flag PMH: none Pain Pain level (0-10): 3 Pain duration: 3 WEEKS Pain location: groin Pain quality: dull and tingling Pain timing: night Associated signs & symptoms: numbness and stiffness Ambulatory data Ambulatory device: none Walking distance (minutes): 5 Treatments Number of previous injections: 0 Improvement with previous injections: No Number of Physical Therapy sessions: 0 Improvement with PT: No Improvement with NSAIDS: no Review of Systems Review of Systems: All systems negative unless otherwise noted in HPI.
[2024-11-17 14:59] VITALS: BP 128/81; PULSE 73; RESP 18; TEMP 36.9; O2SAT 93; BMI 32.5
== END 2024-11-17 15:14 | disposition home or self-care (01) ==
LOC: HODSRG 14:16
PROVIDERS: PCP Internal Medicine Hospice and Palliative Medicine; Referring Provider Internal Medicine Hospice and Palliative Medicine; Supervising Provider Orthopaedic Surgery Adult Reconstructive Orthopaedic Surgery; Visit Provider Orthopaedic Surgery Adult Reconstructive Orthopaedic Surgery
DX: M25.551 Pain in right hip (principal); Z96.641 Presence of right artificial hip joint; Z96.651 Presence of right artificial knee joint; I10 Essential (primary) hypertension; E78.00 Pure hypercholesterolemia, unspecified; G47.30 Sleep apnea, unspecified; E03.9 Hypothyroidism, unspecified; E66.9 Obesity, unspecified; Z68.32 Body mass index [BMI] 32.0-32.9, adult
CPT/HCPCS: 99214; G0463

== ENCOUNTER → 2025-01-29 | Outpatient (CLI) | payer MEDICARE, BC, SELFPAY ==
[2025-01-29 16:27] LABS: Basophils # (Auto) 0.1 Thou/mm3 (0.0-0.2); Basophils % (Auto) 1 % (0-2.5); Eosinophils # (Auto) 0.2 Thou/mm3 (0.0-0.5); Eosinophils % (Auto) 2 % (0-10); Hematocrit 51.6 % (41.0-53.0); Hemoglobin 17.4 g/dL (13.5-16.0); Immature Granulocytes Auto 0.08 Thou/mm3 (0.00-0.00); Lymphocytes # (Auto) 2.0 Thou/mm3 (1.0-4.8); Lymphocytes % (Auto) 21 % (10-50); Mean Corpuscular HGB Conc 33.7 g/dl (31.0-37.0); Mean Corpuscular Hemoglobin 29.4 pg (25.0-35.0); Mean Corpuscular Volume 87 fL (80-100); Monocytes # (Auto) 0.8 Thou/mm3 (0.0-0.8); Monocytes % (Auto) 9 % (0-12); Neutrophils # (Auto) 6.3 Thou/mm3 (1.8-7.7); Neutrophils % (Auto) 66 % (37-80); Nucleated Red Blood Cell # 0.00 Thou/mm3 (0.00-0.00); Nucleated Red Blood Cell % 0 /100 WBC (0); Platelet Count 217 Thou/mm3 (140-440); RDW Standard Deviation 41.9 fL (35.1-43.9); Red Blood Count 5.92 Miln/mm3 (4.50-5.90); White Blood Count 9.5 Thou/mm3 (3.8-10.6)
[2025-01-29 16:36] LABS: Glucose Estimated Average 105 mg/dL (80-131); Hemoglobin A1C 5.3 % Hgb (4.8-6.0)
[2025-01-29 16:41] LABS: Alanine Aminotransferase 32 U/L (10-49); Albumin, Serum 4.9 gm/dL (3.4-4.8); Albumin/Globulin Ratio 2.6 (1.2-2.2); Alkaline Phosphatase 72 U/L (46-116); Anion Gap 8 (7-16); Aspartate Amino Transferase 25 U/L (0-34); BUN/Creatinine Ratio 13 Ratio (12-20); Bilirubin,Total 0.5 mg/dL (0.3-1.2); Blood Urea Nitrogen 14 mg/dL (9-23); Calcium 10.1 mg/dL (8.3-10.6); Calcium (Corrected) 10.1 mg/dL (8.5-10.1); Carbon Dioxide 24.8 mMol/L (20.0-31.0); Cardiac Risk Estimate 3.6 RATIO (4.0-6.7); Chloride 104 mMol/L (98-107); Cholesterol 157 mg/dL (132-200); Creatinine (Component) 1.1 mg/dL (0.6-1.3); Free T4 (Free Thyroxine) 1.07 ng/dL (0.89-1.76); Globulin 1.9 gm/dL (2.3-3.5); Glucose 94 mg/dL (74-106); HDL Cholesterol 44 mg/dL (40-60); LDL Cholesterol,Calculated 75 mg/dL (0-130); Osmolality,Calculated 274 (275-295); Potassium 3.9 mMol/L (3.4-5.1); Sodium 137 mMol/L (136-145); Thyroid Stimulating Hormone 9.79 uIU/mL (0.55-4.78); Total Protein 6.8 gm/dL (5.7-8.2); Triglycerides 191 mg/dL (30-150); eGFR > 60 See Note
== END | disposition home or self-care (01) ==
LOC: COPL 15:23
PROVIDERS: PCP Internal Medicine Hospice and Palliative Medicine; Referring Provider Nurse Practitioner Family; Visit Provider Nurse Practitioner Family
DX: E78.5 Hyperlipidemia, unspecified (principal); I10 Essential (primary) hypertension; E03.9 Hypothyroidism, unspecified; E66.811 Obesity, class 1; Z13.1 Encounter for screening for diabetes mellitus
CPT/HCPCS: 36415; 80053; 80061; 82306; 83036; 84439; 84443; 85025